=== PATIENT | male | born 1995 ===

== ENCOUNTER 2017-07-15 15:45 | Emergency (ER) | payer OTHER ==
[2017-07-15 16:00] VITALS: BP 134/76
--- NOTE | 2017-07-15 16:04 | EDM.PDOC ---
ED HPI GENERAL MEDICAL PROBLEM - General Chief Complaint: General Stated Complaint: L #1 DIGIT Time Seen by Provider: 07/15/17 16:00 Source of Information: Reports: Patient, Other (Safety liaison, Chandu). Denies: Old Records (No [facility] records available) History Limitations: Reports: No Limitations - History of Present Illness INITIAL COMMENTS - FREE TEXT/NARRATIVE: The patient was brought to the emergency room via transport vehicle from [facility] for evaluation of a Workmen's Compensation injury, which occurred at about 14: 30 hours. The patient caught his left thumb in a clamp if no history of foreign body, paresthesias, neurological deficits, or other complaints or injuries. He apparently did have a evulsion type laceration in the same finger in 2012. The patient is right-handed. His last TDaP was received on 09/15/16, which was confirmed by the emergency room nurse today. No recent history of abdominal pain , heartburn, nausea, diarrhea, melena, gross hematochezia, or any food intolerance, including fatty foods, etc.. The patient also denies any recent fever, cough, wheezing, dyspnea, etc.. He did take 1500 mg of Tylenol immediately prior to arrival. Onset: Today, Sudden Onset Date: 07/15/17 Onset Time: 14:30 Duration: Constant Location: Reports: Upper Extremity, Left Quality: Reports: Same as Previous Episode, Sharp, Throbbing Severity: Moderate Improves with: Reports: Rest Worsens with: Reports: Movement Context: Reports: Trauma (As above) Associated Symptoms: Denies: Confusion, Chest Pain, Cough, Diaphoresis, Fever/ Chills, Headaches, Loss of Appetite, Malaise, Nausea/Vomiting, Seizure, Shortness of Breath, Syncope, Weakness Treatments CONSULTING SOLUTION MANAGER: Reports: Dressing(s) Left 1-Thumb Pain Score (Numeric/FACES): 8 - Related Data Allergies Allergy/AdvReac Type Severity Reaction Status Date / Time amoxicillin Allergy Rash Verified 07/15/17 15:55 Home Meds: Home Meds Triamcinolone Acetonide [Triamcinolone Acetonide 0.5%] 15 gm .XX BID PRN [History] Past Medical History HEENT History: Reports: None. Denies: Allergic Rhinitis, Cataract, Glaucoma, Hard of Hearing, Impaired Vision, Macular Degeneration, Retinal Detachment Cardiovascular History: Reports: None. Denies: Afib, Aneurysm, Arrhythmia, Blood Clots/VTE/DVT, CAD, Heart Murmur, High Cholesterol, Hypertension, Syncope Respiratory History: Reports: None. Denies: Asthma, Bronchitis, Recurrent, COPD , Intubation, Previous, PE, Pneumothorax, Sleep Apnea Gastrointestinal History: Reports: None. Denies: Celiac Disease, Cholelithiasis , Chronic Constipation, Chronic Diarrhea, Fecal Incontinence, Gastritis, GERD, GI Bleed, Hepatitis, Inflammatory Bowel Disease, Irritable Bowel Syndrome, Jaundice, Pancreatitis, PUD Genitourinary History: Reports: None. Denies: Acute Renal Failure, Chronic Renal Insuffiency, Renal Calculus, Retention, Urinary, STD, Urinary Incontinence , UTI, Recurrent Musculoskeletal History: Reports: Fracture, Other (See Below). Denies: Amputation, Arthritis, Back Pain, Chronic, Gout, Neck Pain, Chronic, Osteoarthritis, RA, SLE Other Musculoskeletal History: Distal radial ulnar fracture/wrist fracture at age 11. Neurological History: Reports: Headaches, Chronic, Other (See Below). Denies: Cerebral Aneurysms, Concussion, Head Trauma, Migraines, Seizure Other Neuro History: Tension headaches Psychiatric History: Denies: Abuse, Victim of, ADD, ADHD, Addiction, Anxiety, Depression, Psych Hospitalization(s), PTSD, Suicide Attempt, Suicidal Ideation Endocrine/Metabolic History: Reports: Obesity/BMI 30+. Denies: Diabetes, Type I , Diabetes, Type II, Diabetes Mellitus, Type 3c, Hypothyroidism, IDDM Hematologic History: Reports: None. Denies: Anemia, Blood Transfusion(s), Iron Deficiency Immunologic History: Denies: None, AIDS, HIV, SLE Oncologic (Cancer) History: Reports: None. Denies: Basal Cell Carcinoma, Hodgkin's Lymphoma, Leukemia, Lymphoma, Malignant Melanoma, Non-Hodgkin's Lymphoma, Squamous Cell Carcinoma Dermatologic History: Reports: Psoriasis. Denies: Eczema - Infectious Disease History Infectious Disease History: Reports: Chicken Pox. Denies: C-Difficile, Measles , Meningitis, Mononucleosis, MRSA, Mumps, Pertussis (Whooping Cough), Rheumatic Fever, Rubella, Scarlet Fever, Shingles, VRE - Past Surgical History Head Surgeries/Procedures: Reports: None HEENT Surgical History: Reports: Oral Surgery. Denies: Adenoidectomy, Eye Surgery, Laser Surgery, LASIK, Myringotomy w Tube(s), Naso-Sinus Surgery, Tonsillectomy Other HEENT Surgeries/Procedures: [place] teeth extraction 3 at age 13 Cardiovascular Surgical History: Reports: None. Denies: Varicose Respiratory Surgical History: Reports: None. Denies: Thoracentesis GI Surgical History: Reports: None. Denies: Appendectomy, Cholecystectomy, Colonoscopy, EGD, Hernia, Abdominal, Hernia, Inguinal, Hernia Repair/Other Male Surgical History: Reports: Circumcision, Other (See Below). Denies: Vasectomy Other Male Surgeries/Procedures: Circumcision as an infant Endocrine Surgical History: Reports: None. Denies: Thyroid Biopsy Neurological Surgical History: Denies: C-Spine, Discectomy, Intracranial, Laminectomy, Lumbar Spine, Sacral Spine, Spinal Fusion, Thoracic Spine, Vertebroplasty Musculoskeletal Surgical History: Reports: None. Denies: Arthroscopic Knee, Arthroscopic Procedure, Carpal Tunnel, Ganglion Cyst, Joint Replacement, ORIF, Shoulder Surgery Oncologic Surgical History: Reports: None Dermatological Surgical History: Reports: None Social & Family History - Tobacco Use Smoking Status *Q: Former Smoker Tobacco Use Within Last Twelve Months: No Years of Tobacco use: 1 Packs/Tins Daily: 0.1 Packs/Tins Daily Comment: Smoked one pack per week between ages 16 and 17 Used Tobacco, but Quit: No Smoking Cessation Information Provided To Patient: No Second Hand Smoke Exposure: No Second Hand Smoke Education Provided: No - Caffeine Use Caffeine Use: Reports: Coffee (One cup every 2 weeks), Soda (1 Soda per week), Tea (2 glasses per week). Denies: Energy Drinks - Alcohol Use Alcohol Use History: Yes Days Per Week of Alcohol Use: 0 Number of Drinks Per Day: 10 Number of Drinks Per Day Comment: Usually beer or mixed drinks once per month. No previous DWIs, problems with alcohol abuse, etc. Total Drinks Per Week: 0 Alcohol Use in Last Twelve Months: Yes Alcohol Use Frequency: Binges - Recreational Drug Use Recreational Drug Use: No Drug Use in Last 12 Months: No Recreational Drug Type: Denies: Amphetamines (Speed), Cocaine, Heroin, Inhalants (Glues, Solvents, Aerosols), LSD (Acid), Marijuana/Hashish, Methamphetamine, Morphine - Sexual History Sexual History: Reports: Single Partner - Living Situation & Occupation Living situation: Reports: Single (No children), Other (Roommate) ED ROS GENERAL - Review of Systems Review Of Systems: ROS reveals no pertinent complaints other than HPI. ED EXAM, GENERAL - Physical Exam Exam: See Below Exam Limited By: No Limitations General Appearance: Alert, WD/WN, No Apparent Distress Head: Atraumatic, Normocephalic Neck: Normal Inspection, Supple, Non-Tender, Full Range of Motion. No: Lymphadenopathy (L), Lymphadenopathy (R), Thyromegaly Respiratory/Chest: No Respiratory Distress, Lungs Clear, Normal Breath Sounds, No Accessory Muscle Use, Chest Non-Tender. No: Pleural Rub, Retractions Cardiovascular: Normal Peripheral Pulses, Regular Rate, Rhythm, No Edema, No Gallop, No JVD, No Murmur, No Rub. No: Gallop/S3, Gallop/S4, Friction Rub Peripheral Pulses: 2+: Radial (L), Radial (R) GI/Abdominal: Normal Bowel Sounds, Soft, Non-Tender, No Organomegaly, No Distention, No Abnormal Bruit, No Mass. No: Guarding (Male) Exam: Deferred Rectal (Males) Exam: Deferred Back Exam: Normal Inspection, Full Range of Motion. No: CVA Tenderness (L), CVA Tenderness (R), Muscle Spasm Extremities: Normal Inspection, Normal Range of Motion, No Pedal Edema, Normal Capillary Refill, Other (Minimal superficial laceration just distal to the thumbnail with moderate subungual hematoma of the left thumb). No: Joint Swelling, Muna's Sign Neurological: Alert, Oriented, CN II-XII Intact, Normal Cognition, Normal Gait, No Motor/Sensory Deficits Psychiatric: Normal Affect, Normal Mood Skin Exam: Warm, Dry, No Rash, Wound/Incision, Other (Lacerations also rinsed with tapwater with Neosporin dressing placed by company nurse.). No: Diaphoretic Lymphatic: No Adenopathy ED GENERAL MEDICAL PROCEDURES - Splinting Left Thumb Pre-procedure NV status: Normal Post-procedure NV status: Normal Splint Material: Aluminum-Foam Splint Design: Other (2-hole finger) Applied & Form Fitted By: Nurse Provider Post-Splint Application NV Check: NV Status Normal, Good Position Complications: Yes - Additional/Other Procedure(s) Other (Free Text) Procedure(s): His left thumb was soaked in povidone iodide solution with subsequent trudy placement by means of electrocautery over the proximal thumbnail without complication and excellent results Course - Vital Signs Last Recorded V/S: Last Vital Signs Temp 37.4 C 07/15/17 15:47 Pulse 80 07/15/17 15:47 Resp 16 07/15/17 15:47 BP 134/76 07/15/17 15:59 Pulse Ox 99 07/15/17 15:47 Vital Signs - 24 hr 07/15/17 07/15/17 15:47 15:59 Temperature [ 37.4 C Temporal] Pulse, 80 Peripheral [ Pulse Oximetry] Respiratory 16 Rate Blood Pressure 132/90 134/76 [Right Upper Arm] O2 Sat by Pulse 99 Oximetry - Orders/Labs/Meds Orders: Active Orders 24 hr Category Date Time Status Fingers Thumb Lt FA [CR] Stat Exams 07/15/17 16:04 Ordered Durable Medical Equipment for Discharge [DME for Oth 07/15/17 16:35 Ordered Discharge] [COMM] Routine Obtain Past Medical Record [OM.PC] Routine Oth 07/15/17 16:04 Active Labs: None Meds: Medications Discontinued Medications Generic Name Dose Route Start Last Admin Trade Name Benq PRN Reason Stop Dose Admin Neomycin/Polymyxin/Bacitracin 1 each 07/15/17 16:35 07/15/17 16:45 Triple Antibiotic Oint TOP 07/15/17 16:36 1 each ONETIME ONE Administration - Radiology Interpretation Free Text/Narrative:: X-rays of the left thumb, 3 views, shows evidence of a mild 1 mm avulsion fracture of the chest with no evidence of foreign body, additional fracture, dislocation, etc. Departure - Departure Time of Disposition: 16:55 Disposition: Home, Self-Care 01 Condition: Good Clinical Impression: Avulsion fracture, Subungual hematoma, Laceration Obesity Qualifiers: Obesity type: due to excess calories Obesity classification: adult class 2 ( BMI 35 - 39.9) Serious obesity comorbidity presence: without serious comorbidity Body mass index: BMI 39.0-39.9 Qualified Code(s): E66.09 - Other obesity due to excess calories - Discharge Information Referrals: Marciano Helm MD [Primary Care Provider] - Forms: ED Department Discharge Additional Instructions: 1. Follow up with your regular provider in 10-14 days as needed, if symptoms persist. Bring these discharge instructions with you to that visit.. 2. Tylenol 650 mg by mouth every 4 hours and/or OTC ibuprofen 2-3 tabs by mouth every 6 hours with food as directed./needed. 3. Antibacterial soap wash/soak with subsequent antibacterial dressing such as Neosporin, etc. as directed 2 times per day until the wound or laceration site completely heals. Keep the area clean and dry with activity restrictions as discussed. 4. Wear finger splint at all times with exception of wound care and bathing for 2 weeks then as needed 5. Decrease alcohol intake as discussed 6. Work excuse- See Form 7. Immediately after this visit verify that your cellular telephone's voicemail has been activated and is empty. Also verify that your home telephone 's answering machine is operating properly and has space to receive messages. Note that it is sometimes necessary for us to be able to contact you at a later date to discuss your medical care. 8. NEVER EXCEED THE RECOMMENDED DOSE OF MEDICINES, INCLUDING OTC MEDICINES, ETC. - Problem List & Annotations (1) Avulsion fracture SNOMED Code(s): 896251509, 062210064, 840810730 Code(s): T14.8XXA - OTHER INJURY OF UNSPECIFIED BODY REGION, INITIAL ENCOUNTER Status: Acute Priority: High Onset Date: 07/15/17 Annotation/ Comment:: Minimal avulsion fracture of the left thumb with finger splint therapy initiated in the emergency room. No significant injury with no work restrictions, etc. required other than use of the above splint. Symptomatic relief as per discharge instructions. His TDaP is up-to-date as above. Work excuse and Workmen's Compensation forms were completed. (2) Laceration SNOMED Code(s): 131713543 Code(s): ZXC8882 - Status: Acute Priority: High Onset Date: 07/15/17 Annotation/Comment:: Minimal laceration not really requiring surgical repair. Various therapeutic options were given to the patient, including nail removal for more improved exploration, etc. Conservative care for now per his request with no other nail removal, etc. (3) Subungual hematoma SNOMED Code(s): 027004587 Code(s): XRL7441 - Status: Acute Priority: High Onset Date: 07/15/17 Annotation/Comment:: Trudy placement with excellent results as above and significant reduction of patient's pain this procedure. Patient is aware that he most likely will lose his thumbnail. (4) Obesity SNOMED Code(s): 361486164, [id number] Code(s): E66.9 - OBESITY, UNSPECIFIED Status: Chronic Priority: Medium Annotation/Comment:: Weight loss in moderation advised. Decreased alcohol use also encouraged. Qualifiers: Obesity type: due to excess calories Obesity classification: adult class 2 (BMI 35 - 39.9) Serious obesity comorbidity presence: without serious comorbidity Body mass index: BMI 39.0-39.9 Qualified Code(s): E66.09 - Other obesity due to excess calories; Z68.39 - Body mass index (BMI) 39.0-39.9, adult - Problem List Review Problem List Initiated/Reviewed/Updated: Yes - My Orders Last 24 Hours: My Active Orders 07/15/17 16:04 Fingers Thumb Lt FA [CR] Stat Obtain Past Medical Record [OM.PC] Routine 07/15/17 16:35 Durable Medical Equipment for Discharge [DME for Discharge] [COMM] Routine - Assessment/Plan Last 24 Hours: My Active Orders 07/15/17 16:04 Fingers Thumb Lt FA [CR] Stat Obtain Past Medical Record [OM.PC] Routine 07/15/17 16:35 Durable Medical Equipment for Discharge [DME for Discharge] [COMM] Routine Assessment:: As above Plan: As above. Extensive precautions were given to the patient, who is in agreement with the treatment plan. See Patient Instructions for further treatment and plan.
[2017-07-15] MEDS ORDERED: Bacitracin/Neomycin/Polymyxin B Oint 0.9 GM U/D Packet TOP ONE (16:35)
== END 2017-07-15 16:55 | disposition home or self-care (01) ==
LOC: LL.ED 15:45
DX: S62.522A Displaced fracture of distal phalanx of left thumb, initial encounter for closed fracture (principal); S61.012A Laceration without foreign body of left thumb without damage to nail, initial encounter; E66.09 Other obesity due to excess calories; Z87.891 Personal history of nicotine dependence; Z88.1 Allergy status to other antibiotic agents; X58.XXXA Exposure to other specified factors, initial encounter; Y93.89 Activity, other specified; Y99.0 Civilian activity done for income or pay; Z68.39 Body mass index [BMI] 39.0-39.9, adult
CPT/HCPCS: 73140-FA; 99283